=== PATIENT | female | born 1955 | race Caucasian/White ===

== ENCOUNTER 2019-03-28 07:06 | Emergency (ER) | payer MEDICAID ==
[~2019-03-28] VITALS: Ht 154.9 cm; Wt 64.0 kg
[2019-03-28 07:08] VITALS: Ht 154.9 cm; Wt 64.0 kg
[2019-03-28] MEDS ORDERED: ONDANSETRON 4 MG INJ IV STA (07:50)
[2019-03-28] MEDS ORDERED: morphine 4 MG/ML VIAL IV STA (07:50)
[2019-03-28] MEDS ORDERED: LACTATED RINGER'S 1,000 ML IV STA (07:50)
--- NOTE | 2019-03-28 08:01 | ERD ---
ER Documentation Chief Complaint Chief Complaint pt is bib family with c/o abd pain and vomiting starting at 2 am HPI 64-year-old female with a history of endometrial CA status post hysterectomy and adjuvant chemotherapy and radiation in 2010 now in remission, hypercalcemia and renal calculi status post parathyroidectomy presents to the ED complaining of a 1 day history of crampy, generalized, moderate to severe abdominal pain with nausea, multiple episodes of nonbloody, nonbilious emesis and watery diarrhea now with blood and mucus. She denies recent travel or spoiled food exposure. No relieving or exacerbating factors. Had 3 days of similar symptoms last week that resolved. Denies chest pain, palpitations or shortness of breath. No dysuria, polyuria hematuria or flank pain. No fevers or chills. ROS All systems reviewed and are negative except as per history of present illness. Medications Home Meds No Active Prescriptions or Reported Meds Allergies Allergies: Coded Allergies: No Known Allergy (Unverified , 03/28/19) PMhx/Soc Reviewed History of Surgery: Yes (Parathyroidectomy, hysterectomy.) Hx Miscellaneous Medical Probl: Yes (ENDOMETRIAL CANCER, hypercalcemia, renal/ureteral calculi) Hx Alcohol Use: No Hx Substance Use: No Hx Tobacco Use: No Smoking Status: Never smoker FmHx No stroke or cancer. Physical Exam Vitals Vital Signs Date Temp Pulse Resp B/P (MAP) Pulse Ox O2 O2 Flow FiO2 Time Delivery Rate 03/28/19 67 17 130/57 100 Room Air 09:52 (81) 03/28/19 98.3 64 18 150/71 98 07:08 (97) Physical Exam Const: Anxious, moderate distress Head: Atraumatic Eyes: Normal Conjunctiva, anicteric ENT: Normal External Ears, Nose and Mouth. Neck: Full range of motion. No meningismus. Resp: Sounds are equal and clear to auscultation bilaterally Cardio: Regular rate and rhythm, no murmurs Abd: Soft, distended, moderate, diffuse tenderness but no rebound or guarding. No Alvarado sign or McBurney's point tenderness. No masses or abnormal pulsations. Normal bowel sounds. Skin: No petechiae or rashes Back: No midline or flank tenderness Ext: No cyanosis, or edema Neur: Awake and alert. No focal deficit Psych: Anxious but not depressed. Result Diagram: 03/28/19 0820 03/28/19 0910 Results 24 hrs Laboratory Tests Test 03/28/19 08:20 03/28/19 09:10 03/28/19 10:36 White Blood Count 17.3 10^3/ul Red Blood Count 4.80 10^6/ul Hemoglobin 13.8 g/dl Hematocrit 42.8 % Mean Corpuscular Volume 89.2 fl Mean Corpuscular Hemoglobin 28.8 pg Mean Corpuscular 32.2 g/dl Hemoglobin Concent Red Cell Distribution Width 13.0 % Platelet Count 211 10^3/UL Mean Platelet Volume 11.6 fl Immature Granulocytes % 0.400 % Neutrophils % 90.8 % Lymphocytes % 3.2 % Monocytes % 5.1 % Eosinophils % 0.2 % Basophils % 0.3 % Nucleated Red Blood Cells % 0.0 /100WBC Immature Granulocytes # 0.070 10^3/ul Neutrophils # 15.7 10^3/ul Lymphocytes # 0.6 10^3/ul Monocytes # 0.9 10^3/ul Eosinophils # 0.0 10^3/ul Basophils # 0.1 10^3/ul Nucleated Red Blood Cells # 0.0 10^3/ul Sodium Level 145 mmol/L Potassium Level 4.6 mmol/L Chloride Level 109 mmol/L Carbon Dioxide Level 26 mmol/L Anion Gap 10 Blood Urea Nitrogen 24 mg/dl Creatinine 0.82 mg/dl Est Glomerular Filtrat > 60 mL/min Rate mL/min Glucose Level 122 mg/dl Calcium Level 10.2 mg/dl Total Bilirubin 0.4 mg/dl Direct Bilirubin 0.00 mg/dl Indirect Bilirubin 0.4 mg/dl Aspartate Amino 25 IU/L Transf (AST/SGOT) Alanine 22 IU/L Aminotransferase (ALT/SGPT) Alkaline Phosphatase 65 IU/L Total Protein 7.5 g/dl Albumin 4.3 g/dl Globulin 3.20 g/dl Albumin/Globulin Ratio 1.34 Lipase 106 U/L Urine Color YELLOW Urine Clarity CLEAR Urine pH 5.0 Urine Specific [place] 1.024 Urine Ketones NEGATIVE mg/dL Urine Nitrite NEGATIVE mg/dL Urine Bilirubin NEGATIVE mg/dL Urine Urobilinogen NEGATIVE mg/dL Urine Leukocyte Esterase 1+ N[place]/ul Urine Microscopic RBC 2 /HPF Urine Microscopic WBC 8 /HPF Urine Bacteria FEW /HPF Urine Mucus FEW /HPF Urine Hemoglobin 2+ mg/dL Urine Glucose NEGATIVE mg/dL Urine Total Protein NEGATIVE mg/dl Current Medications Medications Dose Sig/Nicholas Start Time Status Last (Trade) Ordered Route PRN Stop Time Admin Dose Reason Admin Lactated 1,000 ml @ Q1H STAT 03/28/19 DC 03/28/19 Ringer's 1,000 mls/hr IV 07:50 03/28/19 08:16 08:49 Morphine 4 mg ONCE STAT 03/28/19 DC 03/28/19 Sulfate IV 07:50 03/28/19 08:16 (morphine) 07:53 Ondansetron 4 mg ONCE STAT 03/28/19 DC 03/28/19 HCl (Zofran IV 07:50 03/28/19 08:16 Inj) 07:53 Procedures/MDM DOCUMENTS REVIEWED: ED nurse, no prior records. LAB INTERPRETATION: [ ] IMAGING: PROCEDURE: CT Abdomen and Pelvis without contrast. CLINICAL INDICATION: Abdominal pain TECHNIQUE: CT of the abdomen and pelvis without IV contrast. Coronal and sagittal reformatted images. DICOM images are available. One or more of the following dose reduction techniques were used: automated exposure control, adjustment of the mA and/or kV according to patient size, use of iterative reconstruction technique. CTDI 8.7 mGy, DLP 430 mGy-cm. COMPARISON: None. FINDINGS: Lower thorax: Small hiatal hernia. Liver: Normal Biliary: Status post cholecystectomy. No biliary dilatation. Pancreas: Normal Spleen: Normal Adrenal glands: Normal Genitourinary: Bilateral benign renal cysts. No urolithiasis or obstructive uropathy. Unremarkable urinary bladder. Vascular: No abdominal aortic aneurysm. Aortoiliac atherosclerotic calcifications. Lymph nodes: Status post retroperitoneal lymphadenectomy. No lymphadenopathy. Gastrointestinal: Areas of mild small bowel wall thickening and mesenteric edema are noted in suggestive of enteritis. No bowel obstruction. Normal appendix. No diverticulosis, diverticulitis or colitis. Peritoneum: No free air, free fluid or abscess. Reproductive organs: Status post hysterectomy. Musculoskeletal: Mild degenerative enthesopathy of the spine. IMPRESSION: 1. Findings suggestive of mild enteritis, as above. No bowel obstruction, perforation, or abscess is identified. 2. Small hiatal hernia. 3. Status post cholecystectomy, hysterectomy, and retroperitoneal ly mphadenectomy. 4. Aortoiliac atherosclerotic calcifications. 5. No evidence of mass or lymphadenopathy. RPTAT: AAQQ .Cuate Pedroza MD, MD Date Time Electronically viewed and signed by .Cuate Pedroza MD, MD on 03/28/2019 08:48 .R/ ED COURSE: [] REEXAMINATION/REEVALUATION: Time: 11:40 MEDICAL DECISION MAKIN-year-old female with a history of endometrial CA status post hysterectomy, adjuvant chemotherapy and radiation in 2010 now in remission, hypercalcemia and renal calculi status post parathyroidectomy presents to the ED for evaluation of abdominal pain with nausea, vomiting or diarrhea. Admit to [med/surg, telemetry, ICU] for further evaluation and management. CALLS/CONSULTS: Time: [ ]Dr. [ ]. PATIENT CARE TRANSITIONED: Time: []Dr. [ ]. Counseled [patient and family] regarding diagnosis, diagnostic results and plan for admission. Departure Diagnosis: Primary Impression: Acute generalized abdominal pain Additional Impressions: Nausea vomiting and diarrhea Enteritis Condition: Stable ZACK CASTELLANOS MD March 28, 2019 08:01
[2019-03-28] MEDS ORDERED: TRAM50TA2 PO (11:52)
[2019-03-28] MEDS ORDERED: CIPR500T4 PO (11:52)
[2019-03-28] MEDS ORDERED: ONDA4TAB8 PO (11:52)
[2019-03-28 12:35] VITALS: BP 140/97; PULSE 91; RESP 20
== END 2019-03-28 12:35 | disposition home or self-care (01) ==
LOC: E/R 07:06
DX: K52.9 Noninfective gastroenteritis and colitis, unspecified (principal); Z85.42 Personal history of malignant neoplasm of other parts of uterus
CPT/HCPCS: 36415; 74176; 80053; 81001; 83690; 85025; 96374; 96375; J2270; J2405; J7120; Z7502